=== PATIENT | male | born 1975 | race Hispanic/Latino ===

== ENCOUNTER 2018-11-30 04:22 | Emergency (ER) | payer OTHER ==
[~2018-11-30] VITALS: Ht 172.7 cm; Wt 79.4 kg
--- OUTSIDE RECORDS SUMMARY | 2018-11-30 04:25 | XMS REPORT ---
Author Author Kristan Campos Organization e[employer]Works Address Unknown Phone Unavailable Care Team Providers Care Wine Bottle Inspector Name Role Phone Kristan Campos CP Unavailable Allergies, Adverse Reactions, Alerts Substance Reaction Event Type N.K.D.A. Info Not Available Non Drug Allergy Problems Problem Type Condition Code Onset Dates Condition Status Assessment Atypical chest pain R07.89 Active Assessment LVH (left ventricular hypertrophy) I51.7 Active Problem Mixed hyperlipidemia E78.2 Active Problem Essential hypertension I10 Active Problem LVH (left ventricular hypertrophy) I51.7 Active Assessment Essential hypertension I10 Active Assessment Rapid heart beat R00.0 Active Problem Family history of diabetes mellitus Z83.3 Active Problem Normal body mass index Z78.9 Active Medications Medication Code System Code Instructions Start Date End Date Status Dosage Losartan Potassium [facility] [address]-06 50 MG Orally Once a day August 27, 2016 Active 1 tablet Atorvastatin Calcium [facility] 78430219187 20 mg Orally Once a day Active 1 tablet Vital Signs Date/Time: August 27, 2016 BMI 24.02 Index Weight 158 lbs Height 68 in Cardiac Monitoring Heart Rate 78 /min Blood Pressure Diastolic 80 mm Hg Blood Pressure Systolic 170 mm Hg Results Name Result Date Reference Range Unit Abnormality Flag EKG Summary Purpose eClinicalWorks Submission
--- OUTSIDE RECORDS SUMMARY | 2018-11-30 04:25 | XMS REPORT ---
Author Author Eli Staples Organization [employer] Address Unknown Phone Unavailable Care Team Providers Care Irrigation District Manager Name Role Phone Eli Staples CP Unavailable Allergies, Adverse Reactions, Alerts Substance Reaction Event Type N.K.D.A. Info Not Available Non Drug Allergy Problems Problem Type Condition Code Onset Dates Condition Status Assessment LVH (left ventricular hypertrophy) I51.7 Active [...] Date End Date Status Dosage Losartan Potassium [facility] [address]-55 50 MG Orally Once a day August 27, 2016 Active 1 tablet Atorvastatin Calcium [facility] 39711634069 20 mg Orally Once a day Active 1 tablet Tenormin [facility] [address]-81 50 MG Orally twice a day (bid) September 05, 2016 Active 1 tablet Alprazolam [facility] [address]-53 0.5 MG Orally once or twice a day as needed Active 1/2 half tablet or 1 tablet Vital Signs Date/Time: September 05, 2016 BMI 23.87 Index Weight 157 lbs Height 68 in Cardiac Monitoring Heart Rate 78 /min Blood Pressure Diastolic 84 mm Hg Blood Pressure Systolic 146 mm Hg Results No Known Results Summary Purpose eClinicalWorks Submission
--- OUTSIDE RECORDS SUMMARY | 2018-11-30 04:25 | XMS REPORT ---
Author Author Kristan Campos [facility] eClinicalWorks Address Unknown Phone Unavailable Care Team Providers Care Printer Slotter Operator Name Role Phone Kristan Campos Unavailable Allergies, Adverse Reactions, Alerts Substance Reaction Event Type N.K.D.A. Info Not Available Non Drug Allergy Problems Problem Type Condition Code Onset Dates Condition Status Assessment Essential hypertension I10 Active Assessment Screening for prostate cancer Z12.5 Active Assessment Mixed hyperlipidemia E78.2 Active Assessment LVH (left ventricular hypertrophy) I51.7 Active Problem Essential hypertension I10 Active Problem Mixed hyperlipidemia E78.2 Active Problem LVH (left ventricular hypertrophy) I51.7 Active Assessment Routine physical examination Z00.00 Active Problem Normal body mass index Z78.9 Active Problem Elevated fasting blood sugar R73.01 Active Medications Medication Code System Code Instructions Start Date End Date Status Dosage Atenolol [facility] 72886946083 50 mg orally twice a day (bid) Active 1 tablet Alprazolam [facility] 42252770763 0.5 MG Orally once or twice a day as needed Active 1/2 half tablet or 1 tablet Atorvastatin Calcium [facility] 10717261289 20 MG Active *04/06*TAKE 1 TABLET BY MOUTH DAILY Vital Signs Date/Time: August 12, 2018 BMI 27.06 Index Weight 178 lbs Height 68 in Cardiac Monitoring Heart Rate 63 /min Blood Pressure Diastolic 98 mm Hg Blood Pressure Systolic 146 mm Hg Results Name Result Date Reference Range Unit Abnormality Flag Urinalysis, Routine ----Urobilinogen,Semi-Qn 0.2 20180812 0.2-1.0 mg/dL ----Bilirubin Negative 20180812 Negative ----Urine-Color Yellow 20180812 Yellow ----Appearance Clear 20180812 Clear ----WBC Esterase Negative [id number] Negative ----Protein Negative [id number] Negative/Trace ----Glucose Negative 75520602 Negative ----Ketones Negative 20180812 Negative ----Microscopic Examination Comment [id number] ----Specific [place] 1.014 20180812 1.005-1.030 ----Occult Blood Negative 20180812 Negative ----pH 7.5 20180812 5.0-7.5 ----Nitrite, Urine Negative 20180812 Negative CBC With Differential/Platelet ----Basos 0 20180812 Not Estab. % ----MCV 94 20180812 79-97 fL ----Eos 3 20180812 Not Estab. % ----Hematocrit 48.3 20180812 37.5-51.0 % ----MCHC 34.2 20180812 31.5-35.7 g/dL ----Monocytes 10 20180812 Not Estab. % ----MCH 32.1 20180812 26.6-33.0 pg ----Lymphs 29 20180812 Not Estab. % ----Eos (Absolute) 0.2 20180812 0.0-0.4 x10E3/uL ----WBC 6.0 18643955 3.4-10.8 x10E3/uL ----Monocytes(Absolute) 0.6 97158937 0.1-0.9 x10E3/uL ----Lymphs (Absolute) 1.7 [id number] 0.7-3.1 x10E3/uL ----Hemoglobin 16.5 20180812 13.0-17.7 g/dL ----Neutrophils (Absolute) 3.4 44756883 1.4-7.0 x10E3/uL ----RBC 5.14 57079217 4.14-5.80 x10E6/uL ----Immature Grans (Abs) 0.0 28007239 0.0-0.1 x10E3/uL ----Immature Granulocytes 0 88478351 Not Estab. % ----Neutrophils 58 40312474 Not Estab. % ----Baso (Absolute) 0.0 93268241 0.0-0.2 x10E3/uL ----RDW 12.9 18463600 12.3-15.4 % ----Platelets 280 11080265 150-379 x10E3/uL EKG Chest 2 views- Xray Lipid Panel ----LDL Cholesterol Calc 94 75711916 0-99 mg/dL ----VLDL Cholesterol Diaz 20 20180812 5-40 mg/dL ----HDL Cholesterol 51 67428318 >39 mg/dL ----Triglycerides 99 20180812 0-149 mg/dL ----Cholesterol, Total 165 20180812 100-199 mg/dL Comp. Metabolic Panel (14) ----Glucose 107 20180812 65-99 mg/dL H ----BUN 13 20180812 6-24 mg/dL ----Creatinine 0.96 20180812 0.76-1.27 mg/dL ----Potassium 5.2 40852695 3.5-5.2 mmol/L ----Chloride 101 66885460 96-106 mmol/L ----ALT (SGPT) 37 20180812 0-44 IU/L ----AST (SGOT) 22 20180812 0-40 IU/L ----eGFR If NonAfricn Am 96 [id number] >59 mL/min/1.73 ----Alkaline Phosphatase 71 20180812 39-117 IU/L ----eGFR If Africn Am 111 89826630 >59 mL/min/1.73 ----Bilirubin, Total 0.7 43983890 0.0-1.2 mg/dL ----BUN/Creatinine Ratio 14 20180812 9-20 ----A/G Ratio 1.7 20180812 1.2-2.2 ----Sodium 138 63160375 134-144 mmol/L ----Carbon Dioxide, Total 25 20180812 20-29 mmol/L ----Calcium 10.0 38705392 8.7-10.2 mg/dL ----Protein, Total 7.5 62561124 6.0-8.5 g/dL ----Albumin 4.7 04285476 3.5-5.5 g/dL ----Globulin, Total 2.8 63018908 1.5-4.5 g/dL Prostate-Specific Ag, Serum ----Prostate Specific Ag, Serum 1.3 93294849 0.0-4.0 ng/mL TSH+Free T4 ----T4,Free(Direct) 1.32 80927095 0.82-1.77 ng/dL ----TSH 0.689 [id number] 0.450-4.500 uIU/mL Summary Purpose eClinicalWorks Submission
--- OUTSIDE RECORDS SUMMARY | 2018-11-30 04:25 | XMS REPORT ---
Author Author lEi Staples Organization [employer] Address Unknown Phone Unavailable Care Team Providers Care Keno Manager Name Role Phone Eli Staples CP Unavailable Allergies No Known Allergies Problems Problem Type Condition Code Onset Dates Condition Status Problem Essential hypertension I10 Active Problem Mixed hyperlipidemia E78.2 Active Problem LVH (left ventricular hypertrophy) I51.7 Active Problem Family history of diabetes mellitus Z83.3 Active Problem Normal body mass index Z78.9 Active Medications Medication Code System Code Instructions Start Date End Date Status Dosage Atenolol [facility] 17466138763 50 mg orally twice a day (bid) Active 1 tablet Results No Known Results Summary Purpose eClinicalWorks Submission
--- OUTSIDE RECORDS SUMMARY | 2018-11-30 04:25 | XMS REPORT ---
Author Author Eli Staples Organization [employer]Works Address Unknown Phone Unavailable Care Team Providers Care Trade Analyst Name Role Phone Eli Staples CP Unavailable Allergies No Known Allergies Problems Problem Type Condition Code Onset Dates Condition Status Problem Mixed hyperlipidemia E78.2 Active Problem Essential hypertension I10 Active Problem LVH (left ventricular hypertrophy) I51.7 Active Problem Family history of diabetes mellitus Z83.3 Active Problem Normal body mass index Z78.9 Active Medications No Known Medications Results No Known Results Summary Purpose eClinicalWorks Submission
--- OUTSIDE RECORDS SUMMARY | 2018-11-30 04:25 | XMS REPORT ---
Author Author Kristan Campos [facility] eClinicalWorks Address Unknown Phone Unavailable Care Team Providers Care Wheel Press Operator Name Role Phone Kristan Campos CP Unavailable Allergies, Adverse Reactions, Alerts Substance Reaction Event Type N.K.D.A. Info Not Available Non Drug Allergy Problems Problem Type Condition Code Onset Dates Condition Status Assessment LVH (left ventricular hypertrophy) I51.7 Active Assessment Mixed hyperlipidemia E78.2 Active Assessment Essential hypertension I10 Active Problem Essential hypertension I10 Active Problem Mixed hyperlipidemia E78.2 Active Problem LVH (left ventricular hypertrophy) I51.7 Active Assessment Routine physical examination Z00.00 Active Assessment Screening for prostate cancer Z12.5 Active Problem Family history of diabetes mellitus Z83.3 Active Problem Normal body mass index Z78.9 Active Medications Medication Code System Code Instructions Start Date End Date Status Dosage Atenolol [facility] 39884262423 50 mg orally twice a day (bid) Active 1 tablet Atorvastatin Calcium [facility] [address]-67 20 mg Active 1 tablet Alprazolam [facility] 46480108055 0.5 MG Orally once or twice a day as needed Active 1/2 half tablet or 1 tablet Tenormin [facility] 76221916499 50 MG Orally twice a day (bid) September 05, 2016 Active 1 tablet Vital Signs Date/Time: September 27, 2017 BMI 26.45 Index Weight 174 lbs Height 68 in Cardiac Monitoring Heart Rate 55 /min Blood Pressure Diastolic 88 mm Hg Blood Pressure Systolic 156 mm Hg Results No Known Results Summary Purpose eClinicalWorks Submission
--- OUTSIDE RECORDS SUMMARY | 2018-11-30 04:25 | XMS REPORT ---
Author Author Eli Staples [facility] eClinicalWorks Address Unknown Phone Unavailable Care Team Providers Care Manager Hematology Name Role Phone Eli Staples Unavailable Encounters Encounter Location Date Unknown [facility] Apr 02, 2016 FU Lab Results [facility] Jul 13, 2015 3 MONTH FOLLOW UP [facility] October 12, 2015 Unknown [facility] October 14, 2015 Problems Problem Type Condition ICD-9 Code Onset Dates Condition Status Problem Essential hypertension I10 Active Problem Family history of diabetes mellitus Z83.3 Active Problem Mixed hyperlipidemia E78.2 Active Problem Normal body mass index Z78.9 Active Assessment Mixed hyperlipidemia E78.2 Active Social History Social History Element Qualifiers Date Reported Ethnicity . Status , Is yoruba your primary language? Yes October 12, 2015 Tobacco Use: . Are you a: never smoker October 12, 2015 Marital Status: single. October 12, 2015 Caffeine intake? . Status: Yes, What type: Coffee, Soft Drinks, Energy Drinks, 1 cup a day October 12, 2015 Do you exercise? . Answer: Yes, Type: cardio, walking, weight lifting October 12, 2015 Do you drink alcohol? . Status: Yes, Type: Wine, Beer, Liquor, How often? Socially, How much? Socially October 12, 2015 Summary Purpose eClinicalWorks Submission
--- OUTSIDE RECORDS SUMMARY | 2018-11-30 04:25 | XMS REPORT ---
Author Author Kristan Campos [facility] eClinicalWorks Address Unknown Phone Unavailable Care Team Providers Care Stoker Erector And Servicer Name Role Phone Kristan Campos Unavailable Allergies, Adverse Reactions, Alerts Substance Reaction Event Type N.K.D.A. Info Not Available Non Drug Allergy Encounters Encounter Location Date FU Lab Results [facility] Jul 13, 2015 3 MONTH FOLLOW UP [facility] October 12, 2015 Problems Problem Type Condition ICD-9 Code Onset Dates Condition Status Problem Essential hypertension I10 Active Problem Family history of diabetes mellitus Z83.3 Active Problem Mixed hyperlipidemia E78.2 Active Assessment Essential hypertension I10 Active Problem Normal body mass index Z78.9 Active Assessment Mixed hyperlipidemia E78.2 Active Social History Social History Element Qualifiers Date Reported Ethnicity . Status , Is rwandan your primary language? Yes October 12, 2015 [...] Socially, How much? Socially October 12, 2015 Vital Signs Date/Time: October 12, 2015 Weight 160 lbs Height 68 in Cardiac Monitoring Heart Rate 80 /min Blood Pressure Diastolic 80 mm Hg Blood Pressure Systolic 127 mm Hg Summary Purpose eClinicalWorks Submission
--- OUTSIDE RECORDS SUMMARY | 2018-11-30 04:25 | XMS REPORT ---
Author Author Kristan Campos [facility] eClinicalWorks Address Unknown Phone Unavailable Care Team Providers Care Cafeteria Manager Name Role Phone Kristan Campos CP Unavailable Allergies, Adverse Reactions, Alerts Substance Reaction Event Type N.K.D.A. Info Not Available Non Drug Allergy Encounters Encounter Location Date FU Lab Results [facility] Jul 13, 2015 Problems Problem Type Condition ICD-9 Code Onset Dates Condition Status Assessment LLQ abdominal pain R10.32 Active Problem Essential hypertension I10 Active Problem Family history of diabetes mellitus Z83.3 Active Problem Mixed hyperlipidemia E78.2 Active Assessment Mixed hyperlipidemia E78.2 Active Assessment Essential hypertension I10 Active Problem Elevated blood pressure (not hypertension) R03.0 Active Problem Normal body mass index Z78.9 Active Social History Social History Element Qualifiers Date Reported Ethnicity . Status , Is sami your primary language? Yes Jul 13, 2015 Tobacco Use: . Are you a: never smoker Jul 13, 2015 Marital Status: single. Jul 13, 2015 Caffeine intake? . Status: Yes, What type: Coffee, Soft Drinks, Energy Drinks, 1 cup a day Jul 13, 2015 Do you exercise? . Answer: Yes, Type: cardio, walking, weight lifting Jul 13, 2015 Do you drink alcohol? . Status: Yes, Type: Wine, Beer, Liquor, How often? Socially, How much? Socially Jul 13, 2015 Vital Signs Date/Time: Jul 13, 2015 Weight 165 lbs Height 68 in Cardiac Monitoring Heart Rate 88 /min Blood Pressure Diastolic 90 mm Hg Blood Pressure Systolic 140 mm Hg Summary Purpose eClinicalWorks Submission
--- OUTSIDE RECORDS SUMMARY | 2018-11-30 04:25 | XMS REPORT ---
Author Author Kristan Campos [facility] eClinicalWorks Address Unknown Phone Unavailable Care Team Providers Care Director Business Name Role Phone Kristan Campos CP Unavailable Allergies No Known Allergies Problems [...] Date End Date Status Dosage Losartan Potassium [facility] [address]-28 50 MG Orally Once a day August 27, 2016 Active 1 tablet Atorvastatin Calcium [facility] 68681615542 20 mg Orally Once a day Active 1 tablet Results No Known Results Summary Purpose eClinicalWorks Submission
--- OUTSIDE RECORDS SUMMARY | 2018-11-30 04:25 | XMS REPORT ---
Author Author Kristan Campos [facility] eClinicalWorks Address Unknown Phone Unavailable Care Team Providers Care Licensed Funeral Director Name Role Phone Kristan Campos CP Unavailable [...]
--- OUTSIDE RECORDS SUMMARY | 2018-11-30 04:25 | XMS REPORT ---
Author Author Kristan Campos Organization eClinicalWorks Address Unknown Phone Unavailable Care Team Providers Care Quilter Fixer Name Role Phone Kristan Campos CP Unavailable Allergies, Adverse Reactions, Alerts Substance Reaction Event Type N.K.D.A. Info Not Available Non Drug Allergy Problems Problem Type Condition Code Onset Dates Condition Status Assessment Essential hypertension I10 Active Problem Essential hypertension I10 Active Problem Mixed hyperlipidemia E78.2 Active Problem LVH (left ventricular hypertrophy) I51.7 Active Assessment Sore throat J02.9 Active Problem Normal body mass index Z78.9 Active Problem Elevated fasting blood sugar R73.01 Active Medications Medication Code System Code Instructions Start Date End Date Status Dosage Atenolol [facility] 64650958812 50 mg orally twice a day (bid) Active 1 tablet Atorvastatin Calcium [facility] 77742121859 20 MG Active *04/06*TAKE 1 TABLET BY MOUTH DAILY Alprazolam [facility] 62715622592 0.5 MG Orally once or twice a day as needed Active 1/2 half tablet or 1 tablet Vital Signs Date/Time: November 21, 2018 BMI 26.91 Index Weight 177 lbs Height 68 in Cardiac Monitoring Heart Rate 83 /min Blood Pressure Diastolic 88 mm Hg Blood Pressure Systolic 132 mm Hg Results Name Result Date Reference Range Unit Abnormality Flag RAPID STREP ----Negative negative [id number] Summary Purpose eClinicalWorks Submission
--- OUTSIDE RECORDS SUMMARY | 2018-11-30 04:25 | XMS REPORT ---
Author Author Eli Staples Organization eClinicalWorks Address Unknown Phone Unavailable Care Team Providers Care Academic Department Chair Name Role Phone Eli Staples CP Unavailable [...] Start Date End Date Status Dosage Atenolol [facility] 99258193267 50 mg orally twice a day (bid) Active 1 tablet Results No Known Results Summary Purpose eClinicalWorks Submission
--- OUTSIDE RECORDS SUMMARY | 2018-11-30 04:25 | XMS REPORT ---
Author Author Eli Staples Organization eClinicalWorks Address Unknown Phone Unavailable Care Team Providers Care Auto Hauler Name Role Phone Eli Staples CP Unavailable [...]
--- OUTSIDE RECORDS SUMMARY | 2018-11-30 04:25 | XMS REPORT | Continuity of Care Document ---
Author Author [facility] Address Unknown Phone Unavailable Care Team Providers Care Director Of Public Relations Name Role Phone [employer] Unavailable Unavailable Problems Problem Status Onset Date Classification Date Reported Comments Source Atypical chest pain Active Diagnosis 08/28/2016 [facility] LVH Active Problem 11/23/2018 [facility] Mixed hyperlipidemia Active Problem 11/23/2018 [facility] Essential hypertension Active Diagnosis 11/23/2018 [facility] Rapid heart beat Active Diagnosis 09/12/2016 [facility] Family history of diabetes mellitus Active Problem 09/28/2017 [facility] Normal body mass index Active Problem 11/23/2018 [facility] Routine physical examination Active Diagnosis 08/15/2018 [facility] Screening for prostate cancer Active Diagnosis 08/15/2018 [facility] Elevated fasting blood sugar Active Problem 11/23/2018 [facility] Sore throat Active Diagnosis 11/23/2018 [facility] LLQ abdominal pain Active Diagnosis 07/15/2015 [facility] Elevated blood pressure Active Problem 07/15/2015 [facility] Medications Medication Details Route Status Patient Instructions Ordering Provider Order Date Source Tenormin 1 tablet Orally Active 50 MG Orally twice a day (bid) Bonny 09/05/2016 [facility] Tenormin 1 tablet Orally Active 50 MG Orally twice a day (bid) Andres 09/05/2016 [facility] Losartan Potassium 1 tablet Orally Active 50 MG Orally Once a day Andres 08/27/2016 [facility] Atorvastatin Calcium 1 tablet Orally Active 20 mg Orally Once a day Ghebranious 10/14/2015 [facility] Atorvastatin Calcium *11/4*TAKE 1 TABLET BY MOUTH DAILY NA Active 20 MG Andres [facility] Alprazolam 1/2 half tablet or 1 tablet Orally Active 0.5 MG Orally once or twice a day as needed Bonnyelia [facility] Atenolol 1 tablet orally Active 50 mg orally twice a day (bid) Andres [facility] Atorvastatin Calcium 1 tablet NA Active 20 mg Andres [facility] Alprazolam 1/2 half tablet or 1 tablet Orally Active 0.5 MG Orally once or twice a day as needed Andres [facility] Atenolol 1 tablet orally Active 50 mg orally twice a day (bid) Ghebrantoby [facility] Atorvastatin Calcium 1 tablet orally Active 20 mg orally once a day Kuldeepebclyde [facility] Allergies, Adverse Reactions, Alerts Substance Category Reaction Severity Reaction type Status Date Reported Comments Source N.K.D.A. Adverse Reaction Info Not Available Adverse Reaction Active 11/21/2018 [facility] Immunizations No Data Provided for This Section Results No Data Provided for This Section Pathology Reports No Data Provided for This Section Diagnostic Reports No Data Provided for This Section Consultation Notes No Data Provided for This Section Discharge Summaries No Data Provided for This Section History and Physicals No Data Provided for This Section Vital Signs Vital Sign Value Date Comments Source Weight 177 11/21/2018 [facility] Height 68 11/21/2018 [facility] Heart Rate 83 11/21/2018 [facility] Diastolic (mm Hg) 88 11/21/2018 [facility] Systolic (mm Hg) 132 11/21/2018 [facility] Weight 178 08/12/2018 [facility] Height 68 08/12/2018 [facility] Heart Rate 63 08/12/2018 [facility] Diastolic (mm Hg) 98 08/12/2018 [facility] Systolic (mm Hg) 146 08/12/2018 [facility] Weight 174 09/27/2017 [facility] Height 68 09/27/2017 [facility] Heart Rate 55 09/27/2017 [facility] Diastolic (mm Hg) 88 09/27/2017 [facility] Systolic (mm Hg) 156 09/27/2017 [facility] Weight 164 11/14/2016 [facility] Height 68 11/14/2016 [facility] Heart Rate 57 11/14/2016 [facility] Diastolic (mm Hg) 92 11/14/2016 [facility] Systolic (mm Hg) 140 11/14/2016 [facility] Weight 161 09/21/2016 [facility] Height 68 09/21/2016 [facility] Heart Rate 60 09/21/2016 [facility] Diastolic (mm Hg) 88 09/21/2016 [facility] Systolic (mm Hg) 139 09/21/2016 [facility] Weight 157 09/05/2016 [facility] Height 68 09/05/2016 [facility] Heart Rate 78 09/05/2016 [facility] Diastolic (mm Hg) 84 09/05/2016 [facility] Systolic (mm Hg) 146 09/05/2016 [facility] Weight 158 08/27/2016 [facility] Height 68 08/27/2016 [facility] Heart Rate 78 08/27/2016 [facility] Diastolic (mm Hg) 80 08/27/2016 [facility] Systolic (mm Hg) 170 08/27/2016 [facility] Weight 160 10/12/2015 [facility] Height 68 10/12/2015 [facility] Heart Rate 80 10/12/2015 [facility] Diastolic (mm Hg) 80 10/12/2015 [facility] Systolic (mm Hg) 127 10/12/2015 [facility] Weight 165 07/13/2015 [facility] Height 68 07/13/2015 [facility] Heart Rate 88 07/13/2015 [facility] Diastolic (mm Hg) 90 07/13/2015 [facility] Systolic (mm Hg) 140 07/13/2015 [facility] Encounters Location Location Details Encounter Type Encounter Number Reason For Visit Attending Provider ADM Date DC Date Status Source [facility] Lab Results [id number] 07/13/2015 07/13/2015 [facility] FU Lab Results [id number] 07/13/2015 07/13/2015 [facility] FU Lab Results [id number] 07/13/2015 07/13/2015 [facility] FU Lab Results [id number] 07/13/2015 07/13/2015 [facility] 3 MONTH FOLLOW UP [id number] 10/12/2015 10/12/2015 [facility] 3 MONTH FOLLOW UP [id number] 10/12/2015 10/12/2015 [facility] 3 MONTH FOLLOW UP [id number] 10/12/2015 10/12/2015 [facility] Unknown [id number] 10/14/2015 10/14/2015 [facility] Unknown [id number] 10/14/2015 10/14/2015 [facility] Unknown [id number] 04/02/2016 04/02/2016 [facility] Procedures No Data Provided for This Section Assessment and Plan No Data Provided for This Section Plan of Care No Data Provided for This Section Social History Social History Date Source Social History ElementQualifiersDate Reported Ethnicity . Status , Is albanian your primary language? Yes October 12, 2015 [...] Socially, How much? Socially October 12, 2015 10/12/2015 [facility] Family History No Data Provided for This Section Advance Directives No Data Provided for This Section Functional Status No Data Provided for This Section
--- OUTSIDE RECORDS SUMMARY | 2018-11-30 04:25 | XMS REPORT ---
Author Author Eli Staples [facility] [employer] Address Unknown Phone Unavailable Care Team Providers Care Executive Sales Manager Name Role Phone Eli Staples CP Unavailable Encounters Encounter Location Date FU Lab Results [facility] Jul 13, 2015 3 MONTH FOLLOW UP [facility] October 12, 2015 Unknown [facility] October 14, 2015 Problems Problem Type Condition ICD-9 Code Onset Dates Condition Status Problem Essential hypertension I10 Active Problem Family history of diabetes mellitus Z83.3 Active Problem Mixed hyperlipidemia E78.2 Active Problem Normal body mass index Z78.9 Active Medications Medication Code System Code Instructions Start Date End Date Status Dosage [facility]or[facility] [address]-65 20 mg Orally Once a day October 14, 2015 Active 1 tablet Social History Social History Element Qualifiers Date Reported Ethnicity . Status , Is azeri your primary language? Yes October 12, 2015 [...]
--- OUTSIDE RECORDS SUMMARY | 2018-11-30 04:25 | XMS REPORT ---
Author Author Christine Draper [facility] eClinicalWorks Address Unknown Phone Unavailable Care Team Providers Care Novelty Twister Operator Name Role Phone Christine Draper CP Unavailable Allergies, Adverse Reactions, Alerts Substance Reaction Event Type N.K.D.A. Info Not Available Non Drug Allergy Problems Problem Type Condition Code Onset Dates Condition Status Assessment Screening for prostate cancer Z12.5 Active Assessment Essential hypertension I10 Active Assessment Family history of diabetes mellitus Z83.3 Active Problem Mixed hyperlipidemia E78.2 Active Problem Essential hypertension I10 Active Problem LVH (left ventricular hypertrophy) I51.7 Active Assessment Routine physical examination Z00.00 Active Assessment Mixed hyperlipidemia E78.2 Active Problem Family history of diabetes mellitus Z83.3 Active Problem Normal body mass index Z78.9 Active Medications Medication Code System Code Instructions Start Date End Date Status Dosage Alprazolam [facility] [address]-61 0.5 MG Orally once or twice a day as needed Active 1/2 half tablet or 1 tablet Atorvastatin Calcium [facility] 78210824302 20 mg Orally Once a day Active 1 tablet Tenormin [facility] [address]-05 50 MG Orally twice a day (bid) September 05, 2016 Active 1 tablet Vital Signs Date/Time: November 14, 2016 BMI 24.93 Index Weight 164 lbs Height 68 in Cardiac Monitoring Heart Rate 57 /min Blood Pressure Diastolic 92 mm Hg Blood Pressure Systolic 140 mm Hg Results No Known Results Summary Purpose eClinicalWorks Submission
--- OUTSIDE RECORDS SUMMARY | 2018-11-30 04:25 | XMS REPORT ---
Author Author Eli Staples Organization [employer] Address Unknown Phone Unavailable Care Team Providers Care Track Liner Operator Name Role Phone Eli Staples CP Unavailable [...] Date End Date Status Dosage Atorvastatin Calcium [facility] 51073361881 20 mg orally once a day Active 1 tablet Results No Known Results Summary Purpose eClinicalWorks Submission
--- OUTSIDE RECORDS SUMMARY | 2018-11-30 04:26 | XMS REPORT ---
Author Author Kristan Campos [facility] eClinicalWorks Address Unknown Phone Unavailable Care Team Providers Care Yard Engineer Name Role Phone Kristan Campos CP Unavailable Allergies, Adverse Reactions, Alerts Substance Reaction Event Type N.K.D.A. Info Not Available Non Drug Allergy Problems Problem Type Condition Code Onset Dates Condition Status Problem Mixed hyperlipidemia E78.2 Active Problem Essential hypertension I10 Active Problem LVH (left ventricular hypertrophy) I51.7 Active Assessment Essential hypertension I10 Active Assessment LVH (left ventricular hypertrophy) I51.7 Active Problem Family history of diabetes mellitus Z83.3 Active Problem Normal body mass index Z78.9 Active Medications Medication Code System Code Instructions Start Date End Date Status Dosage Losartan Potassium [facility] [address]-18 50 MG Orally Once a day August 27, 2016 Active 1 tablet Alprazolam [facility] [address]-14 0.5 MG Orally once or twice a day as needed Active 1/2 half tablet or 1 tablet Tenormin [facility] [address]-55 50 MG Orally twice a day (bid) September 05, 2016 Active 1 tablet Atorvastatin Calcium [facility] 05367950917 20 mg Orally Once a day Active 1 tablet Vital Signs Date/Time: September 21, 2016 BMI 24.48 Index Weight 161 lbs Height 68 in Cardiac Monitoring Heart Rate 60 /min Blood Pressure Diastolic 88 mm Hg Blood Pressure Systolic 139 mm Hg Results No Known Results Summary Purpose eClinicalWorks Submission
[2018-11-30] MEDS ORDERED: AZITHROMYCIN 250 MG TAB PO ONE (05:00)
[2018-11-30] MEDS ORDERED: ONDANSETRON HCL 4 MG ORAL DISINTEGRATING TAB PO ONE (05:00)
[2018-11-30] MEDS ORDERED: CEFTRIAXONE SOD 500 MG VIAL IM ONE (05:00)
[2018-11-30] MEDS ORDERED: AZITHROMYCIN 250 MG TAB ONE (05:01)
[2018-11-30] MEDS ORDERED: CEFTRIAXONE SOD 500 MG VIAL ONE (05:01)
[2018-11-30] MEDS ORDERED: ONDANSETRON HCL 4 MG ORAL DISINTEGRATING TAB ONE (05:01)
== END 2018-11-30 04:45 | disposition home or self-care (01) ==
LOC: FSED 04:22
DX: R30.0 Dysuria (principal); N41.0 Acute prostatitis; I10 Essential (primary) hypertension; E78.5 Hyperlipidemia, unspecified
CPT/HCPCS: 81003; 87800; 99283; J0696; Q0162